=== PATIENT | male | born 1950 ===

== ENCOUNTER 2016-06-18 11:08 | Emergency (ER) | payer MEDICAID ==
[2016-06-18 11:17] VITALS: BP 124/77; PULSE 73; RESP 20; TEMP 97.7; O2SAT 95
--- NOTE | 2016-06-18 11:58 | C.PDOC ---
History Of Present Illness 65 yr old male presents to the ER for evaluation of right shoulder pain for the past 1 month. Patient states the pain is localized and worse with movement. States he saw his PMD, Xray was done but "no pain medication given". Patient denies trauma, fall, injury, deformity, chest pain, SOB, nausea, vomiting, arm pain, weakness or numbness. Time Seen by Provider: 06/18/16 11:29 Chief Complaint (Nursing): Upper Extremity Problem/Injury History Per: Patient History/Exam Limitations: no limitations Onset/Duration Of Symptoms: Persistent (1 month) Current Symptoms Are (Timing): Still Present Past Medical History Reviewed: Historical Data, Nursing Documentation, Vital Signs Vital Signs: Last Vital Signs Temp 97.7 F 06/18/16 11:16 Pulse 73 06/18/16 11:16 Resp 20 06/18/16 11:16 BP 124/77 06/18/16 11:16 Pulse Ox 95 06/18/16 12:15 - Medical History PMH: Gastrointestinal Ulcer Family History: States: No Known Family Hx - Social History Hx Alcohol Use: Yes Hx Substance Use: No - Immunization History Hx Tetanus Toxoid Vaccination: Yes Hx Influenza Vaccination: Yes Hx Pneumococcal Vaccination: No Review Of Systems Except As Marked, All Systems Reviewed And Found Negative. Cardiovascular: Negative for: Chest Pain Respiratory: Negative for: Shortness of Breath Gastrointestinal: Negative for: Nausea, Vomiting Musculoskeletal: Positive for: Shoulder Pain (Right Shoulder ) Neurological: Negative for: Weakness, Numbness Physical Exam - Physical Exam Appears: Well, Non-toxic, No Acute Distress Skin: Normal Color, Warm, Dry Eye(s): bilateral: Normal Inspection Nose: Normal Throat: Normal Neck: Normal, Normal ROM, No Midline Cervical Tenderness, No Paracervical Tenderness, No Step Off Deformity, Supple Chest: Symmetrical Cardiovascular: Rhythm Regular Respiratory: Normal Breath Sounds, No Stridor, No Wheezing Gastrointestinal/Abdominal: Normal Exam, Soft, No Tenderness Back: Normal Inspection, No CVA Tenderness, No Vertebral Tenderness Extremity: Normal ROM, Tenderness (mild Right superior shoulder tenderness. FAROM, no neurovascular deficits.), No Deformity, No Swelling Neurological/Psych: Oriented x3, Normal Speech, Normal Motor, Normal Sensation, Normal Reflexes ED Course And Treatment O2 Sat by Pulse Oximetry: 95 Pulse Ox Interpretation: Normal - Other Rad Right shoulder 06/10/16 X-Ray: Read By Radiologist Interpretation: Accession No. : [id number]. Patient Name / ID : JESUS Barnett / [id number]. Exam Date : 06/10/2016 14:09:48 ( Approved ). Study Comment : Sex / Age : M / 65Y. Creator : Felicia Cooper MD. Dictator : Felicia Cooper MD. Automatic Splicing Machine Operator : Vocational Rehabilitation Specialist : Felicia Cooper MD. Approver2 : Report Date : 06/11/2016 10:53:30. My Comment : . PROCEDURE: Radiographs of the Right Shoulder. HISTORY: TEAR. COMPARISON: No prior. FINDINGS: BONES: Bone alignment is normal. There is no acute fracture or bone destruction. JOINTS: There is mild degenerative osteoarthrosis in the glenohumeral and acromioclavicular joints. SOFT TISSUES: Normal. OTHER FINDINGS: None. 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 Progress Note: On re-eavluation, pt is afebrile, hemodynamicaly stable. non- toxic. PulsEOx 95% RA. Right shoulder xray: (+) mild superior shoulder tenderness. FAROM, no neurovascular deficits. Neurologicaly intact. Xray or Rt shoulder and CXR results from 06/04/16 review and discussed with pt. Xray of shoulder c/w DJD. Pt is aware of CXR findings, has scheduled PMD appoitment tomorrow and further testing and tx. Pt advised on course of ds. ref. to F/U with Ortho as well for further eval and tx of Rt shoulder arthritis. Disposition Counseled Patient/Family Regarding: Studies Performed, Diagnosis, Need For Followup, Rx Given - Disposition Referrals: Linda Alexander MD [Primary Care Provider] - Disposition: HOME/ ROUTINE Disposition Time: 11:56 Condition: STABLE Additional Instructions: Light duty to Right shoulder for weeks take medication as need for pain Follow up with PMD and Orthopedist in 2-3 days for re-evaluation. Return to ED if any worsening or new changes. Prescriptions: Meloxicam [Mobic] 7.5 mg PO DAILY #20 tab traMADol [Ultram] 50 mg PO BID #10 tab Instructions: Arthritis (ED), Shoulder Pain (ED) Print Language: MONGOLIAN - Clinical Impression Clinical Impression: Shoulder arthritis - PA / RESIDENT CARE AID / Resident Statement MD/DO has reviewed & agrees with the documentation as recorded. - Scribe Statement The provider has reviewed the documentation as recorded by the Scribe Elaine Gallagher All medical record entries made by the Luis were at my direction and personally dictated by me. I have reviewed the chart and agree that the record accurately reflects my personal performance of the history, physical exam, medical decision making, and the department course for this patient. I have also personally directed, reviewed, and agree with the discharge instructions and disposition.
== END 2016-06-18 12:16 | disposition home or self-care (01) ==
LOC: C.ER 11:08 → SUPCPDRO 11:08 → C.ER 12:16
DX: M19.011 Primary osteoarthritis, right shoulder (principal)

== ENCOUNTER 2016-07-03 10:22 | Emergency (ER) | payer MEDICAID ==
[2016-07-03] MEDS ORDERED: Iohexol 240 (50 ml) PO STA (11:07)
--- NOTE | 2016-07-03 11:12 | C.PDOC ---
History Of Present Illness Patient is a 65 year old male who presents to the ER with a complaint of left lower quadrant pain since last night that is worsening. Patient recently had bronchitis and still has a cough. Patient occasionally uses ETOH but denies use of tobacco and substance abuse. Patient declines any pain medication at this time. Patient states last bowel movement was yesterday and denies any nausea, vomiting, diarrhea, fever, chills, or urinary symptoms. Time Seen by Provider: 07/03/16 10:34 Chief Complaint (Nursing): Abdominal Pain History Per: Patient History/Exam Limitations: no limitations Onset/Duration Of Symptoms: Hrs (Since last night) Current Symptoms Are (Timing): Still Present (Worsening) Location Of Pain/Discomfort: LLQ Quality Of Discomfort: Unable To Describe Associated Symptoms: denies: Fever, Chills, Nausea, Vomiting, Diarrhea, Urinary Symptoms Past Medical History Reviewed: Historical Data, Nursing Documentation, Vital Signs Vital Signs: Last Vital Signs Temp 97.8 F 07/03/16 13:10 Pulse 58 L 07/03/16 13:10 Resp 20 07/03/16 13:10 BP 122/75 07/03/16 13:10 Pulse Ox 94 L 07/03/16 15:37 - Medical History PMH: Benign Prostatic Hyperplasia, Gastrointestinal Ulcer Other Surgeries: Right hip surgery Family History: States: Unknown Family Hx - Social History Hx Alcohol Use: Yes Hx Substance Use: No - Immunization History Hx Tetanus Toxoid Vaccination: Yes Hx Influenza Vaccination: Yes Hx Pneumococcal Vaccination: No Review Of Systems Constitutional: Negative for: Fever, Chills Cardiovascular: Negative for: Chest Pain, Palpitations Respiratory: Positive for: Cough. Negative for: Shortness of Breath Gastrointestinal: Positive for: Abdominal Pain (Left lower quadrant). Negative for: Nausea, Vomiting, Diarrhea Physical Exam - Physical Exam Appears: Well, Non-toxic Skin: Normal Color, Warm, Dry Head: Atraumatic, Normacephalic Oral Mucosa: Moist Neck: Normal ROM Chest: Symmetrical, No Deformity, No Tenderness Cardiovascular: Rhythm Regular, No Murmur Respiratory: No Rales, No Rhonchi, No Wheezing, Other (Crackles right base) Gastrointestinal/Abdominal: Bowel Sounds, Soft, Tenderness (Left lower quadrant) , No Distention, No Guarding, No Rebound Back: No CVA Tenderness Neurological/Psych: Oriented x3, Normal Speech, Normal Cognition ED Course And Treatment - Laboratory Results Result Diagrams: 07/03/16 11:17 07/03/16 11:17 O2 Sat by Pulse Oximetry: 94 (Room air) Pulse Ox Interpretation: Normal Progress Note: Blood work, urinalysis, chest x-ray, and CAT scan of the abd/ pelvis with PO & IV contrast ordered. Omnipaque PO administered. Medical Decision Making Medical Decision Making: pt is resting comfortably. ct scan results explained to patient-need for antibiotics by mouth, need to return to er for any worse pain. fever, or vomiting. pt will f/u wiht pmd on friday. also notified pt of pulmonary nodule and questionable inflitrate oncxr. pt has chest ct scheduled for friday. pt also to go see his urologist for hematuria. Disposition Counseled Patient/Family Regarding: Studies Performed, Diagnosis, Need For Followup, Rx Given - Disposition Disposition: HOME/ ROUTINE Disposition Time: 16:28 Condition: STABLE Additional Instructions: Please follow up with your primary care doctor in a few days.when you go to the radiologist, bring copies of your cat scan and chest xray results with you. Take antibiotics as prescribed. Do not drink any alcohol while taking this medications, Follow up with your urologist about blood in urine. Follow up with dental assisting instructor for nodule in lung. Return to ER for worse pain. vomiting or fever. Prescriptions: Ciprofloxacin HCl [Cipro] 500 mg PO BID #14 tablet Metronidazole [Flagyl] 500 mg PO TID #21 tablet Forms: Gen Discharge Inst Lithuanian - Clinical Impression Clinical Impression: Diverticulitis of intestine - Scribe Statement The provider has reviewed the documentation as recorded by the Luis Jimenez All medical record entries made by the Luis were at my direction and personally dictated by me. I have reviewed the chart and agree that the record accurately reflects my personal performance of the history, physical exam, medical decision making, and the department course for this patient. I have also personally directed, reviewed, and agree with the discharge instructions and disposition.
[2016-07-03 11:25] LABS: BASO # 0.1 K/uL (0.0-0.2); BASO % 0.8 % (0.0-2.0); EOS # 0.4 K/uL (0.0-0.7); EOS % 3.9 % (0.0-4.0); HEMATOCRIT 40.2 % (35.0-51.0); LYMPH # 2.4 K/uL (1.0-4.3); LYMPH % 21.6 % (20.0-40.0); MEAN CORPUSCULAR HEMOGLOBIN 30.4 pg (27.0-31.0); MEAN CORPUSCULAR HGB CONC 33.7 g/dL (33.0-37.0); MEAN PLATELET VOLUME 7.3 fL (7.2-11.7); MONO # 1.1 K/uL (0.0-0.8); MONO % 9.9 % (0.0-10.0); RED CELL DISTRIBUTION WIDTH 13.7 % (11.5-14.5); WHITE BLOOD COUNT 11.3 K/uL (4.8-10.8)
[2016-07-03 11:34] LABS: CHLORIDE 103 mmol/L (98-107)
[2016-07-03 11:35] LABS: POTASSIUM 4.1 mmol/L (3.6-5.2); SODIUM 138 mmol/L (132-148)
[2016-07-03 11:37] LABS: ALKALINE PHOSPHATASE 81 U/L (38-126); ALT/SGPT 16 U/L (21-72); AST/SGOT 33 U/L (17-59); BILIRUBIN,TOTAL 0.9 mg/dL (0.2-1.3); BLOOD UREA NITROGEN 15 mg/dL (9-20); CARBON DIOXIDE 22 mmol/L (22-30); GFR AFRICAN-AMERICAN > 60; TOTAL PROTEIN 7.6 g/dL (6.3-8.3)
[2016-07-03 11:38] LABS: CALCIUM 8.6 mg/dl (8.6-10.4); GLUCOSE,RANDOM 90 mg/dL (75-110)
[2016-07-03 11:42] LABS: RBC URINE 3 /hpf (0-3); URINE BILIRUBIN NEGATIVE (NEGATIVE); URINE BLOOD 1+ (NEGATIVE); URINE COLOR Yellow (YELLOW); URINE GLUCOSE (UA) NORMAL (Normal); URINE KETONE NEGATIVE (NEGATIVE); URINE LEUKOCYTE ESTERASE NEG Leu/uL (Negative); URINE PROTEIN NEGATIVE (NEGATIVE); URINE UROBILINOGEN NORMAL mg/dL (0.2-1.0); WBC URINE < 1 /hpf (0-5)
[2016-07-03 13:10] VITALS: BP 122/75; PULSE 58; RESP 20; TEMP 97.8
[2016-07-03] MEDS ORDERED: Iodixanol 320 MG/ML 100 ML BOTTLE IV ONE (13:38)
--- NOTE | 2016-07-03 14:16 | CT ---
PROCEDURE: CT Abdomen and Pelvis with oral and IV contrast. HISTORY: Abdominal pain, left lower quadrant COMPARISON: None available. TECHNIQUE: Contiguous axial images of the abdomen and pelvis. Oral and IV contrast was administered. Coronal and Sagittal reformats generated and reviewed. This CT exam was performed using 1 or more of the falling dose reduction techniques: Automated exposure control, adjustment of the MAA and/or kV according to patient size, and/or use of iterative reconstruction technique Contrast dose: 100 mL Visipaque Radiation dose: Total exam DLP = 851.86 mGy-cm. FINDINGS: LOWER THORAX: 6 mm right middle lobe pulmonary nodule (series 5, image 88). Fibrotic changes bilateral lower lobes. No visible pleural effusion or pneumothorax. LIVER: Decreased hypoattenuation of the liver compatible with hepatic steatosis. At least 5 too small to characterize hepatic hypodensities measuring up to 5 mm ; statistically likely cysts or hemangiomas. GALLBLADDER AND BILE DUCTS: Cholecystectomy. PANCREAS: Unremarkable. SPLEEN: 11 mm probable splenule. Otherwise unremarkable. ADRENALS: Unremarkable. KIDNEYS AND URETERS: The kidneys enhance symmetrically. No hydronephrosis or obstructing renal calculus. BLADDER: Thick-walled urinary bladder appears out of proportion to underdistention. REPRODUCTIVE: The prostate gland measures approximately 3.2 x 3.7 cm. APPENDIX: The appendix appears within normal limits of caliber. No secondary signs of acute appendicitis. BOWEL: The stomach is nondistended. The bowel loops appear within normal limits of caliber without evidence of intestinal obstruction. Extensive diverticulosis with associated wall thickening and inflammatory changes compatible with acute diverticulitis. PERITONEUM: No significant free fluid. No definite free air. LYMPH NODES: No bulky lymphadenopathy identified. VASCULATURE: No aortic aneurysm. BONES: Right hip arthroplasty with resultant streak artifact. OTHER FINDINGS: None. IMPRESSION: Findings consistent with acute diverticulitis involving the sigmoid colon. Thickened urinary bladder wall. Well urinary bladder is under distended, wall thickness appears out of proportion to underdistention. Recommend correlation with urinalysis. Hepatic steatosis. Too small to characterize hepatic hypodensities, statistically likely cysts or hemangiomas. Cholecystectomy. 6 mm right middle lobe pulmonary nodule. Guidelines by the Fleischner society (radiology 2005; 237:395-400) suggests that in patients with low risk for lung cancer, nodules from 5 mm to 6 mm in diameter should have follow-up in approximately 12 months. In patients with high-risk, such as those were smokers, follow-up is recommended in 6 months. Patients with a known malignancy or risk for metastases should receive 3 month follow-up. Fibrotic changes, bilateral lower lobes. Right hip arthroplasty.
[2016-07-03 14:35] VITALS: O2SAT 94
--- NOTE | 2016-07-03 15:31 | RAD ---
HISTORY: recent bronchitis, crackles right base COMPARISON: Chest x-ray performed 05/21/16 TECHNIQUE: Chest PA and lateral FINDINGS: LUNGS: Coarse interstitial markings appear chronic. Subtle superimposed left lower lobe infiltrate is not excluded. Please note that chest x-ray has limited sensitivity for the detection of pulmonary masses. PLEURA: No significant pleural effusion identified. No definite pneumothorax . CARDIOVASCULAR: The cardiomediastinal silhouette appears within normal limits of size. OSSEOUS STRUCTURES: Degenerative changes. VISUALIZED UPPER ABDOMEN: Right upper quadrant surgical clips. OTHER FINDINGS: None. IMPRESSION: Coarse interstitial markings appear chronic. Subtle superimposed left lower lobe infiltrate is not excluded.
== END 2016-07-03 16:41 | disposition home or self-care (01) ==
LOC: C.ER 10:22
DX: K57.32 Diverticulitis of large intestine without perforation or abscess without bleeding (principal)
CPT/HCPCS: 71020; 74177; 80053; 81001; 83690; 85025; 99285; Q9966; Q9967

== ENCOUNTER 2016-09-09 12:09 | Emergency (ER) | payer MEDICAID ==
[2016-09-09 13:37] LABS: RBC URINE 1 /hpf (0-3); URINE BILIRUBIN NEGATIVE (NEGATIVE); URINE BLOOD 1+ (NEGATIVE); URINE COLOR Yellow (YELLOW); URINE GLUCOSE (UA) NORMAL (Normal); URINE KETONE NEGATIVE (NEGATIVE); URINE LEUKOCYTE ESTERASE NEG Leu/uL (Negative); URINE PROTEIN NEGATIVE (NEGATIVE); URINE UROBILINOGEN NORMAL mg/dL (0.2-1.0); WBC URINE 1 /hpf (0-5)
--- NOTE | 2016-09-09 14:05 | C.PDOC ---
Time Seen by Provider: 09/09/16 13:28 Chief Complaint (Nursing): Abdominal Pain History Per: Patient Onset/Duration Of Symptoms: Days (2) Severity: Mild Location Of Pain/Discomfort: LLQ Radiation Of Pain To:: None Quality Of Discomfort: "Pain" Exacerbating Factors: None Alleviating Factors: None Last Bowel Movement: Today Additional History Per: Prior Records Past Medical History Reviewed: Historical Data, Nursing Documentation, Vital Signs Vital Signs: Last Vital Signs Temp 98.9 F 09/09/16 12:22 Pulse 68 09/09/16 12:22 Resp 20 09/09/16 12:22 BP 109/75 09/09/16 12:22 Pulse Ox 95 09/09/16 12:22 - Medical History PMH: Benign Prostatic Hyperplasia, Diverticulitis, Gastrointestinal Ulcer Family History: States: Unknown Family Hx - Social History Hx Alcohol Use: Yes Hx Substance Use: No - Immunization History Hx Tetanus Toxoid Vaccination: Yes Hx Influenza Vaccination: Yes Hx Pneumococcal Vaccination: No Review Of Systems Except As Marked, All Systems Reviewed And Found Negative. Constitutional: Negative for: Fever, Weakness Cardiovascular: Negative for: Chest Pain Respiratory: Negative for: Shortness of Breath Gastrointestinal: Negative for: Nausea, Vomiting, Diarrhea, Constipation, Melena , Hematochezia, Hematemesis Genitourinary: Negative for: Dysuria Musculoskeletal: Negative for: Neck Pain, Back Pain Skin: Negative for: Rash Neurological: Negative for: Weakness, Numbness, Seizures, Altered Mental Status Physical Exam - Physical Exam Appears: Non-toxic, No Acute Distress Skin: Normal Color, Warm, Dry, No Rash Head: Atraumatic, Normacephalic Eye(s): bilateral: Normal Inspection, PERRL, EOMI Neck: Normal ROM, Supple Cardiovascular: Rhythm Regular Respiratory: Normal Breath Sounds, No Accessory Muscle Use Gastrointestinal/Abdominal: Soft, Tenderness (LLQ, mild), No Distention, No Guarding, No Rebound Back: No CVA Tenderness Extremity: Normal ROM Neurological/Psych: Oriented x3, Normal Motor, Normal Sensation ED Course And Treatment O2 Sat by Pulse Oximetry: 95 Pulse Ox Interpretation: Normal Medical Decision Making Medical Decision Making: Pt had diverticulitis 2 months ago and was treated with outpt abx with complete resolution. Same symptoms started 2 days ago again. Disposition Counseled Patient/Family Regarding: Studies Performed, Diagnosis, Need For Followup, Rx Given - Disposition Disposition: HOME/ ROUTINE Disposition Time: 14:05 Condition: STABLE Additional Instructions: Follow up with your primary doctor this week. Return to the ER if you develop fever, vomiting, bloody stools, worsening of symptoms or if you have any other concerns. Prescriptions: Ciprofloxacin [Cipro] 1 tab PO BID #14 tab metroNIDAZOLE [Flagyl] 500 mg PO TID #21 tab Instructions: Diverticulitis (ED) - Clinical Impression Clinical Impression: Diverticulitis
[2016-09-09 14:20] VITALS: BP 119/78; PULSE 64; RESP 18; TEMP 97.8; O2SAT 97
== END 2016-09-09 14:20 | disposition home or self-care (01) ==
LOC: C.ER 12:09
DX: K57.92 Diverticulitis of intestine, part unspecified, without perforation or abscess without bleeding (principal)

== ENCOUNTER 2017-03-10 12:07 | Emergency (ER) | payer MEDICAID ==
[2017-03-10 12:16] VITALS: BMI 30.5
[2017-03-10 12:18] VITALS: BP 138/82; PULSE 71; RESP 18; TEMP 97.5; O2SAT 95
--- NOTE | 2017-03-10 13:53 | C.PDOC ---
History Of Present Illness 66 year old male, whose PMHx includes pulmonary fibrosis, presents to the ED for evaluation of myalgias and cough that is productive of white sputum for 4 days. Patient is taking medication for his pulmonary fibrosis, but is unclear of the medication name. Patient also reports he recently underwent lung biopsy/ surgery on his right side, with unclear results. Patient also reports subjective fever. He denies chest pain and shortness of breath at this time. Time Seen by Provider: 03/10/17 12:54 Chief Complaint (Nursing): Cough, Cold, Congestion History Per: Patient History/Exam Limitations: no limitations Onset/Duration Of Symptoms: Days (4) Current Symptoms Are (Timing): Still Present Location Of Pain: Diffuse Myalgias Associated Symptoms: Fever, Cough, Sputum (white) Additional History Per: Patient Past Medical History Reviewed: Historical Data, Nursing Documentation, Vital Signs Vital Signs: Last Vital Signs Temp 97.5 F L 03/10/17 12:15 Pulse 71 03/10/17 12:15 Resp 18 03/10/17 12:15 BP 138/82 03/10/17 12:15 Pulse Ox 95 03/10/17 13:55 - Medical History PMH: Benign Prostatic Hyperplasia, Diverticulitis, Gastrointestinal Ulcer Denies: Chronic Kidney Disease Surgical History: No Surg Hx Family History: States: Unknown Family Hx - Social History Hx Alcohol Use: Yes Hx Substance Use: No - Immunization History Hx Tetanus Toxoid Vaccination: Yes Hx Influenza Vaccination: Yes Hx Pneumococcal Vaccination: No Review Of Systems Constitutional: Positive for: Fever (subjective), Other (myalgia ) Cardiovascular: Negative for: Chest Pain Respiratory: Positive for: Cough, Sputum (white). Negative for: Shortness of Breath Physical Exam - Physical Exam Appears: Well, Non-toxic, No Acute Distress Skin: Normal Color, Warm, Dry Head: Atraumatic, Normacephalic Eye(s): bilateral: Normal Inspection Ear(s): Bilateral: Normal Nose: Normal, No Discharge Oral Mucosa: Moist Throat: Normal, No Erythema, No Exudate Neck: Supple Chest: Symmetrical, No Deformity, No Tenderness Cardiovascular: Rhythm Regular, No Murmur Respiratory: Other (bilateral basilar crackles, right>left) Gastrointestinal/Abdominal: Soft, No Tenderness, No Guarding, No Rebound Extremity: Normal ROM, No Pedal Edema, No Calf Tenderness, Capillary Refill ( less than 2 seconds ) Neurological/Psych: Oriented x3, Normal Speech, Normal Cognition Gait: Steady ED Course And Treatment O2 Sat by Pulse Oximetry: 95 (on RA) Pulse Ox Interpretation: Normal Medical Decision Making Medical Decision Making: Progress: CXR ordered and reviewed. 237 pm IMPRESSION: No active pulmonary disease. No significant interval change compared to the prior examination(s). Findings consistent with known diagnosis of pulmonary fibrosis pt afebile, nont toxic appearing. 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 Return toER for any worsening symptoms. Instructions: Upper Respiratory Infection (ED) Forms: [facility] ([place]), General Discharge Instructions - Clinical Impression Clinical Impression: Upper respiratory infection - PA / WELLHEAD PUMPER / Resident Statement MD/DO has reviewed & agrees with the documentation as recorded. - Scribe Statement The provider has reviewed the documentation as recorded by the Scribe (Sandra Randolph) All medical record entries made by the Scribe were at my direction and personally dictated by me. I have reviewed the chart and agree that the record accurately reflects my personal performance of the history, physical exam, medical decision making, and the department course for this patient. I have also personally directed, reviewed, and agree with the discharge instructions and disposition.
--- NOTE | 2017-03-10 14:21 | RAD ---
HISTORY: cough, hx pulmonary fibrosis COMPARISON: 07/02/2016. Two-view chest. 05/21/2016. Two-view chest. TECHNIQUE: Chest PA and lateral FINDINGS: LUNGS: Stable and chronic interstitial lung disease. No new/acute, superimposed pulmonary abnormalities. PLEURA: No significant pleural effusion identified. No pneumothorax apparent. CARDIOVASCULAR: No radiographic findings to suggest acute or significant cardiovascular disease. OSSEOUS STRUCTURES: No significant abnormalities. VISUALIZED UPPER ABDOMEN: Normal. OTHER FINDINGS: None. IMPRESSION: No active pulmonary disease. No significant interval change compared to the prior examination(s). Findings consistent with known diagnosis of pulmonary fibrosis
== END 2017-03-10 14:53 | disposition home or self-care (01) ==
LOC: C.ER 12:07
DX: J06.9 Acute upper respiratory infection, unspecified (principal)

== ENCOUNTER 2018-03-05 13:49 | Emergency (ER) | payer MEDICAID ==
[2018-03-05 13:49] VITALS: BMI 30.5
[2018-03-05 14:01] VITALS: RESP 18; TEMP 97.6; O2SAT 96
--- NOTE | 2018-03-05 14:28 | C.PDOC ---
History Of Present Illness 67 y/o male presents to the ER complaining of right ankle and left knee pain which began yesterday. Patient states that he was on a ladder, approximately 3 feet high, when he slipped and fell injuring his right ankle and left knee. Patient reports that he did not hit his head. He notes that he made an Rom Wrap and he was able to bear weight on his ankle. Denies having LOC, headache, dizziness, visual changes, CP, SOB, nausea, vomiting, and weakness in legs. Time Seen by Provider: 03/05/18 14:08 Chief Complaint (Nursing): Lower Extremity Problem/Injury History Per: Patient History/Exam Limitations: no limitations Onset/Duration Of Symptoms: Days Current Symptoms Are (Timing): Still Present Severity: Moderate Past Medical History Reviewed: Historical Data, Nursing Documentation, Vital Signs Vital Signs: Last Vital Signs Temp 97.6 F 03/05/18 13:57 Pulse 63 03/05/18 13:57 Resp 18 03/05/18 13:57 BP 127/77 03/05/18 13:57 Pulse Ox 96 03/05/18 13:57 - Medical History PMH: Benign Prostatic Hyperplasia, Diverticulitis, Gastrointestinal Ulcer, Osteoporosis Denies: Chronic Kidney Disease Other Surgeries: Hx of surgeries Family History: States: No Known Family Hx - Social History Hx Alcohol Use: Yes Hx Substance Use: No - Immunization History Hx Tetanus Toxoid Vaccination: Yes Hx Influenza Vaccination: Yes Hx Pneumococcal Vaccination: No Review Of Systems Except As Marked, All Systems Reviewed And Found Negative. Musculoskeletal: Positive for: Other (left knee pain, right ankle pain) Neurological: Negative for: Weakness, Numbness Physical Exam - Physical Exam Appears: Non-toxic, No Acute Distress Skin: Normal Color, Warm, Dry, Other (no increased warmth or erythema to left knee and right ankle) Head: Atraumatic, Normacephalic Eye(s): bilateral: Normal Inspection Neck: Supple Chest: Symmetrical Extremity: Normal ROM, Tenderness (mild tenderness to anterior medial left knee, tenderness in lateral malleolus of right ankle), Swelling ( swelling to lateral malleolus of right ankle), Other (no joint laxity in left knee) Pulses: Left Dorsalis Pedis: Normal (DP/PT), Right Dorsalis Pedis: Normal (DP/PT) Neurological/Psych: Oriented x3, Normal Speech ED Course And Treatment O2 Sat by Pulse Oximetry: 96 (RA) Pulse Ox Interpretation: Normal - Other Rad X-Ray-Right Ankle X-Ray: Viewed By Me, Read By Radiologist Interpretation: Date of service: 03/05/2018. PROCEDURE: Right Ankle Radiographs. HISTORY: injury. COMPARISON: None available. FINDINGS: BONES: No fracture appreciated. JOINTS: Dorsal midfoot mild arthrosis. Ankle mortise maintained. Talar dome intact. SOFT TISSUES: Subcutaneous serpiginous densities-varicosities and atherosclerotic vascular disease are suggested. Lateral perimalleolar soft tissue swelling. OTHER FINDINGS: Small inferior calcaneal spur. IMPRESSION: No fracture or dislocation is suggested. Mild- moderate soft tissue swelling in the area of interest is noted. Other findings as above. X-Ray-Right Knee X-Ray: Viewed By Me, Read By Radiologist Interpretation: Date of service: 03/05/2018. PROCEDURE: Left Knee Radiographs. HISTORY: Pain. COMPARISON: None. FINDINGS: BONES: No fracture. Tibial spine spurring present. JOINTS: Arthrosis. JOINT EFFUSION: None. OTHER FINDINGS: None. 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 Patellofemoral and lesser medial femoral tibial compartment narrowing Medical Decision Making Medical Decision Making: Plan: --X-Ray- Left Knee --X-Ray- Right Ankle Of note, patient declined pain medications. Updates: 14:30 X-Ray- Left Knee and X-Ray- Right Ankle are negative for fractures or dislocations. Rom wrap has been applied by echocardiograph technician. Patient is able to bear weight. Patient has been discharged and instructed to follow up in clinic. Disposition Counseled Patient/Family Regarding: Studies Performed, Diagnosis, Need For Followup - Disposition Referrals: [facility] [Outside] [facility] [Outside] Disposition: HOME/ ROUTINE Disposition Time: 14:56 Condition: GOOD Additional Instructions: ORAL LEE, thank you for letting us take care of you today. Your provider was Sabra Henao MD and you were treated for FOOT PAIN. The emergency medical care you received today was directed at your acute symptoms. If you were prescribed any medication, please fill it and take as directed. It may take several days for your symptoms to resolve. Return to the Emergency Department if your symptoms worsen, do not improve, or if you have any other problems. Please contact your doctor or call one of the physicians/clinics you have been referred to that are listed on the Patient Visit Information form that is included in your discharge packet. Bring any paperwork you were given at discharge with you along with any medications you are taking to your follow up visit. Our treatment cannot replace ongoing medical care by a primary care provider outside of the emergency department. Thank you for allowing the [employer] team to be part of your care today. Instructions: Ankle Sprain (DC), Lower Extremity Muscle Strain (DC) Forms: General Discharge Instructions, [employer] [facility] ([place]), Work Excuse - Clinical Impression Clinical Impression: Strain of left knee, Right ankle sprain - Scribe Statement The provider has reviewed the documentation as recorded by the Luis Mandujano Provider Attestation: All medical record entries made by the Luis were at my direction and personally dictated by me. I have reviewed the chart and agree that the record accurately reflects my personal performance of the history, physical exam, medical decision making, and the department course for this patient. I have also personally directed, reviewed, and agree with the discharge instructions and disposition.
--- NOTE | 2018-03-05 14:40 | RAD ---
Date of service: 03/05/2018 PROCEDURE: Right Ankle Radiographs. HISTORY: injury COMPARISON: None available. FINDINGS: BONES: No fracture appreciated JOINTS: Dorsal midfoot mild arthrosis. Ankle mortise maintained. Talar dome intact SOFT TISSUES: Subcutaneous serpiginous densities-varicosities and atherosclerotic vascular disease are suggested. Lateral perimalleolar soft tissue swelling OTHER FINDINGS: Small inferior calcaneal spur. IMPRESSION: No fracture or dislocation is suggested. Mild-moderate soft tissue swelling in the area of interest is noted. Other findings as above.
--- NOTE | 2018-03-05 14:42 | RAD ---
Date of service: 03/05/2018 PROCEDURE: Left Knee Radiographs. HISTORY: Pain. COMPARISON: None. FINDINGS: BONES: No fracture Tibial spine spurring present JOINTS: Arthrosis JOINT EFFUSION: None. OTHER FINDINGS: None. 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 Patellofemoral and lesser medial femoral tibial compartment narrowing
[2018-03-05 16:03] VITALS: BP 143/85; PULSE 60
== END 2018-03-05 15:55 | disposition home or self-care (01) ==
LOC: C.ER 13:49
DX: S86.912A Strain of unspecified muscle(s) and tendon(s) at lower leg level, left leg, initial encounter (principal); S93.401A Sprain of unspecified ligament of right ankle, initial encounter; W11.XXXA Fall on and from ladder, initial encounter; M81.0 Age-related osteoporosis without current pathological fracture; N40.0 Benign prostatic hyperplasia without lower urinary tract symptoms

== ENCOUNTER 2018-04-02 09:46 | Emergency (ER) | payer MEDICAID ==
[2018-04-02 09:46] VITALS: BMI 30.5
--- NOTE | 2018-04-02 10:05 | C.PDOC ---
History Of Present Illness 67 y/o male with PMH of osteoporosis presents to the ED c/o left knee pain and swelling s/p fall 1 month ago. Pain worsened 3 days ago, making it difficult for the patient to sleep. Pt seen here on 03/05/18 after fall, with left knee pain in the same area, XR negative for fracture, diagnosed with knee strain. Never followed up with primary, clinic, or orthopedics. Taking ibuprofen for pain without relief, last yesterday. Denies fevers, chills, joint redness, calf pain, calf tenderness, numbness, paresthesias, weakness, or any other associated symptoms. Time Seen by Provider: 04/02/18 10:11 Chief Complaint (Nursing): Lower Extremity Problem/Injury History Per: Patient History/Exam Limitations: no limitations Onset/Duration Of Symptoms: Days Current Symptoms Are (Timing): Still Present Severity: Mild Recent travel outside of the [place]: No - Knee Description Of Injury: Fell Past Medical History Reviewed: Historical Data, Nursing Documentation, Vital Signs Vital Signs: Last Vital Signs Temp 97.8 F 04/02/18 09:55 Pulse 65 04/02/18 09:55 Resp 18 04/02/18 09:55 BP 138/82 04/02/18 09:55 Pulse Ox 97 04/02/18 09:55 - Medical History PMH: Arthritis, Benign Prostatic Hyperplasia, Diverticulitis, Gastrointestinal Ulcer, Osteoporosis Denies: Chronic Kidney Disease Family History: States: Unknown Family Hx - Social History Hx Alcohol Use: Yes Hx Substance Use: No - Immunization History Hx Tetanus Toxoid Vaccination: Yes Hx Influenza Vaccination: Yes Hx Pneumococcal Vaccination: No Review Of Systems Except As Marked, All Systems Reviewed And Found Negative. Constitutional: Negative for: Fever, Chills Eyes: Negative for: Vision Change ENT: Negative for: Nose Congestion Cardiovascular: Negative for: Chest Pain, Palpitations, Light Headedness Respiratory: Negative for: Cough, Shortness of Breath Gastrointestinal: Negative for: Nausea, Vomiting, Abdominal Pain, Diarrhea, Constipation Genitourinary: Negative for: Dysuria, Frequency Musculoskeletal: Positive for: Leg Pain (left). Negative for: Neck Pain, Back Pain Skin: Negative for: Rash Neurological: Negative for: Weakness, Numbness, Headache, Dizziness Physical Exam - Physical Exam Appears: Well, Non-toxic, No Acute Distress Skin: Normal Color, Warm, Dry Head: Atraumatic, Normacephalic, No Tenderness Eye(s): bilateral: Normal Inspection, PERRL, EOMI Nose: Normal Oral Mucosa: Moist Throat: Normal Neck: Normal, Normal ROM Cardiovascular: Rhythm Regular Respiratory: Normal Breath Sounds Gastrointestinal/Abdominal: Normal Exam, Soft, No Tenderness Extremity: Normal ROM, Tenderness (mild, anterior medial left knee), No Pedal Edema, No Calf Tenderness, Capillary Refill (<3s), No Deformity, Swelling (mild, left knee), Other (Pulses 2/2, Strength 5/5, sensation intact bilaterally, no brusing, redness, or warmth to left knee) Extremity: Left: Painful To Bear Weight, Bilateral: Atraumatic, No Pedal Edema, Normal Color And Temperature, Normal ROM Pulses: Left Radial: Normal, Right Radial: Normal, Left Dorsalis Pedis: Normal, Right Dorsalis Pedis: Normal Neurological/Psych: Oriented x3, Normal Speech, Normal Cognition, Normal Motor, Normal Sensation Gait: Steady ED Course And Treatment O2 Sat by Pulse Oximetry: 97 (RA) Pulse Ox Interpretation: Normal - Other Rad X-Ray-Left Knee X-Ray: Viewed By Me, Read By Radiologist Interpretation: FINDINGS: BONES: No acute displaced fracture. Osseous demineralization. Degenerative changes including tenting of the intercondylar notch. JOINTS: No dislocation. Medial compartment narrowing. JOINT EFFUSION: Small suprapatellar joint effusion. OTHER FINDINGS: Soft tissue swelling. No evidence of radiopaque foreign body. IMPRESSION: Soft tissue swelling. Small suprapatellar joint effusion. No acute displaced fracture or dislocation identified. If symptoms persist, or if there is continued clinical concern, x- ray follow-up in 7-10 days should be considered. Medical Decision Making Medical Decision Making: Initial Plan: * Left Knee XR * Duplex Left lower extremity * Tylenol * Lidoderm Patch Patient reports decreased pain after medications. Prelim Venous Duplex read negative for DVT XR shows small suprapatellar effusion Recommended patient followup with PMD/clinic and orthopedics within the next 1-2 days. Patient agrees, states he will followup. Diagnostic testing results and plan of care discussed with patient. Strict instructions given regarding prescription use, importance of followup, and sig ns/symptoms to return to ER including worsening pain, redness, fever, chills, N/V, or any other new/worsening symptoms. Pt verbalized understanding of discussion. Patient is A&Ox3, ambluating with steady gait, with vital signs stable for discharge. Disposition - Disposition Referrals: [facility] [Outside] [facility] [place] [Outside] Sp Will MD [Staff Provider] - Disposition: HOME/ ROUTINE Disposition Time: 13:00 Condition: IMPROVED Additional Instructions: Naproxen daily with food as needed for pain Lidoderm patches daily, 12 hours on, 12 hours off Followup with orthopedic doctor within 2 days for potential outpatient imaging Followup with clinic or primary doctor within 2 days Return to ER with any new/worsening symptoms Prescriptions: Lidocaine 5% [Lidoderm] 1 ea TD DAILY PRN #30 patch PRN Reason: Pain, Mild (1-3) Naproxen [Naprosyn] 500 mg PO DAILY PRN #14 tablet PRN Reason: Pain, Moderate (4-7) Instructions: Knee Pain (DC) Forms: Gen Discharge Inst [place], [employer] [facility] ([place]ese), Work Excuse - Clinical Impression Clinical Impression: Knee pain
[2018-04-02] MEDS ORDERED: Lidocaine 5% Patch TD STA (12:04)
[2018-04-02] MEDS ORDERED: Lidocaine 5% Patch TD ONE (12:16)
--- NOTE | 2018-04-02 12:54 | RAD ---
PROCEDURE: Left Knee Radiographs. HISTORY: knee pain, swelling COMPARISON: Left knee radiographs performed 03/05/18 FINDINGS: BONES: No acute displaced fracture. Osseous demineralization. Degenerative changes including tenting of the intercondylar notch. JOINTS: No dislocation. Medial compartment narrowing. JOINT EFFUSION: Small suprapatellar joint effusion. OTHER FINDINGS: Soft tissue swelling. No evidence of radiopaque foreign body. IMPRESSION: Soft tissue swelling. Small suprapatellar joint effusion. No acute displaced fracture or dislocation identified. If symptoms persist, or if there is continued clinical concern, x-ray follow-up in 7-10 days should be considered.
[2018-04-02 12:56] VITALS: BP 138/82; PULSE 65; RESP 18; TEMP 97.8; O2SAT 97
--- NOTE | 2018-04-02 13:33 | VASCLAB ---
Date of service: 04/02/2018 PROCEDURE: Left Lower Extremity Venous Duplex Exam. HISTORY: left leg swelling, pain PRIORS: None. TECHNIQUE: Left common femoral, femoral, popliteal and posterior tibial, peroneal and great saphenous veins were evaluated. Flow was assessed with color Doppler, compressibility, assessment of phasic flow and augmentation response. Report prepared by ALEXANDRA Black, RVT FINDINGS: LEFT: 1. Common Femoral Vein: 1.1. Compressibility - Fully compressible: Thrombus - None : Flow - Phasic: Augmentation -Normal: Reflux - None. 2. Femoral Vein: 2.1. Compressibility - Fully compressible: Thrombus - None: Flow - Phasic: Augmentation -Normal: Reflux - None. 3. Popliteal Vein: 3.1. Compressibility - Fully compressible: Thrombus - None: Flow - Phasic: Augmentation -Normal: Reflux - None. 4. Posterior Tibial Vein: 4.1. Compressibility - Fully compressible: Thrombus - None: Flow - Phasic: Augmentation -Normal: Reflux - None. 5. Peroneal Vein: 5.1. Compressibility - Fully compressible: Thrombus - None: Flow - Phasic: Augmentation -Normal: Reflux - None. 6. Great Saphenous Vein: 6.1. Compressibility - Fully compressible: Thrombus - None: Flow - Phasic: Augmentation - Normal: Reflux - None. OTHER FINDINGS: IMPRESSION: No evidence of deep or superficial vein thrombosis of the left lower extremity with excellent venous flow. Normal valve function noted of the left side. Normal venous flow noted in the right common femoral vein.
== END 2018-04-02 13:06 | disposition home or self-care (01) ==
LOC: C.ER 09:46
DX: M25.562 Pain in left knee (principal); M81.0 Age-related osteoporosis without current pathological fracture